=== PATIENT | female | born 1995 | race Caucasian/White ===

== ENCOUNTER 2017-10-12 16:29 | Emergency (ER) | payer OTHER ==
[2017-10-12] MEDS: LIDOCAINE 2% VISC 15 ML CUP PO (17:15)
[2017-10-12] MEDS: DEXAMETHASONE 10 MG/ML 1 ML INJ PO (17:15)
[2017-10-12] MEDS: ACETAMINOPHEN 325 MG TAB PO (17:15)
== END 2017-10-12 17:33 | disposition home or self-care (01) ==
LOC: FTE 16:29
DX: J02.0 Streptococcal pharyngitis (principal)
CPT/HCPCS: 99284; J1100

== ENCOUNTER 2017-11-27 02:13 | Emergency (ER) | payer OTHER ==
[2017-11-27 04:58] LABS: URINE PH (Dip) POC 6.5 (5.0-8.5)
[2017-11-27 04:58] LABS: URINE BLOOD (Dip) POC Trace-intact (NEGATIVE); URINE GLUCOSE (Dip) POC Negative (NEGATIVE); URINE KETONES (Dip) POC Negative (NEGATIVE); URINE LEUKOCYTE EST (Dip) POC 2+ (NEGATIVE); URINE NITRITE (Dip) POC Negative (NEGATIVE); URINE TOTAL PROTEIN POC Negative (NEGATIVE)
== END 2017-11-27 05:50 | disposition home or self-care (01) ==
LOC: FTE 02:13
DX: N30.01 Acute cystitis with hematuria (principal)
CPT/HCPCS: 81003; 81025; 99283